=== PATIENT | female | born 1980 | race African-American/Black ===

== ENCOUNTER 2018-11-06 10:17 | Emergency (ER) | payer MEDICAID ==
[~2018-11-06] VITALS: Ht 157.5 cm; Wt 58.0 kg
[2018-11-06] MEDS ORDERED: SODIUM CHLORIDE 0.9% 1,000 ML IV ONE (11:00)
[2018-11-06] MEDS ORDERED: ONDANSETRON 4MG ODT PO ONE (11:00)
[2018-11-06 11:44] LABS: CHLORIDE 100 mEq/L (98-107)
[2018-11-06 12:15] LABS: UCG SCREEN NEGATIVE
[2018-11-06 14:09] VITALS: BP 146/96
== END 2018-11-06 14:12 | disposition home or self-care (01) ==
LOC: ER 10:17
DX: J40 Bronchitis, not specified as acute or chronic (principal); F17.210 Nicotine dependence, cigarettes, uncomplicated; R00.0 Tachycardia, unspecified; R06.82 Tachypnea, not elsewhere classified; Z88.0 Allergy status to penicillin
CPT/HCPCS: 36415; 71046; 80048; 81025; 84484; 85379; 96360; 96361; 99284; 99406; J7030; Z7610; Q0162

== ENCOUNTER 2021-06-24 18:30 | Emergency (ER) | payer MEDICAID ==
[~2021-06-24] VITALS: Ht 157.5 cm; Wt 60.0 kg
[2021-06-24 18:34] VITALS: BP 190/98
== END 2021-06-24 20:38 | disposition home or self-care (01) ==
LOC: ER 18:30
DX: G56.02 Carpal tunnel syndrome, left upper limb (principal); R03.0 Elevated blood-pressure reading, without diagnosis of hypertension
CPT/HCPCS: 99281

== ENCOUNTER 2022-10-18 14:33 | Emergency (ER) | payer BC, MEDICAID ==
[~2022-10-18] VITALS: Ht 157.5 cm; Wt 59.0 kg
[2022-10-18 15:44] LABS: BASOPHILS % 0.5 % (0.0-2.0); EOSINOPHILS % 0.4 % (0.0-5.0); HEMATOCRIT. 36.6 % (36.0-48.0); HEMOGLOBIN. 12.7 g/dL (12.0-16.0); LYMPHOCYTES % 23.6 % (20.0-50.0); MEAN CORPUSCULAR HEMOGLOBIN 34.2 pg (28.0-32.0); MEAN CORPUSCULAR VOLUME 98.6 fL (81.0-99.0); MONOCYTES % 12.6 % (2.0-8.0); NEUTROPHILS % 62.9 % (40.0-76.0); PLATELET 142 x1000/uL (130-400); RED BLOOD CELL COUNT 3.71 mill/uL (4.2-5.4); RED CELL DISTRIBUTION WIDTH 18.3 % (11.6-14.6)
[2022-10-18 15:53] LABS: CHLORIDE 86 mEq/L (98-107)
[2022-10-18] MEDS ORDERED: ONDANSETRON HCL 4MG/2ML INJ IV ONE (16:00)
[2022-10-18] MEDS ORDERED: SODIUM CHLORIDE 0.9% 1,000 ML IV ONE (16:00)
[2022-10-18 16:09] LABS: ETHANOL BLOOD 171 mg/dL
[2022-10-18 16:13] LABS: HCG SCREEN NEGATIVE
[2022-10-18 17:22] LABS: *AMPHETAMINES SCREEN URINE NEGATIVE (NEGATIVE); *BARBITURATES SCREEN URINE NEGATIVE (NEGATIVE); *BENZODIAZEPINES SCREEN URINE NEGATIVE (NEGATIVE); *COCAINE SCREEN URINE NEGATIVE (NEGATIVE); METHADONE URINE SCREEN NEGATIVE (NEGATIVE); OPIATES URINE SCREEN NEGATIVE (NEGATIVE); PHENCYCLIDINE URINE SCREEN NEGATIVE (NEGATIVE)
[2022-10-18 17:24] LABS: CANNABINOID URINE SCREEN PRESUMTIVE POSITIVE (NEGATIVE)
[2022-10-18] MEDS ORDERED: KCL 20MEQ/100ML PREMIX 100 ML IV ONE (19:15)
[2022-10-18] MEDS ORDERED: POTASSIUM CHLORIDE 20MEQ TABLET SR PO ONE (19:15)
[2022-10-18 19:49] LABS: CLARITY URINE CLOUDY (CLEAR); COLOR URINE DARK YELLOW (YELLOW); KETONES URINE 2+ (NEGATIVE); LEUKOCYTE ESTERASE URINE 1+ (NEGATIVE); NITRITE URINE POSITIVE (NEGATIVE); OCCULT BLOOD URINE 3+ (NEGATIVE); PH URINE 6.5 (4.5-8.0); PROTEIN URINE 3+ (NEGATIVE); SPECIFIC GRAVITY URINE 1.023 (1.005-1.030); UROBILINOGEN URINE >8.0 E.U./dL (0.2-1.0)
[2022-10-18 22:30] VITALS: BP 121/74
== END 2022-10-18 23:36 | disposition short-term general hospital (02) ==
LOC: ER 14:33 → CANBEDREQ 23:51
DX: F10.129 Alcohol abuse with intoxication, unspecified (principal); E87.6 Hypokalemia; R11.2 Nausea with vomiting, unspecified; Z88.0 Allergy status to penicillin; Z79.899 Other long term (current) drug therapy; Y90.6 Blood alcohol level of 120-199 mg/100 ml
CPT/HCPCS: 36415; 71045; 80053; 80305; 80320; 81003; 81025; 83735; 83880; 84703; 85025; 93005; 96361; 96365; 96366; 96375; 99285; J2405; J3480; J7030; G0480

== ENCOUNTER 2022-11-10 14:22 | Emergency (ER) | payer BC ==
[~2022-11-10] VITALS: Ht 170.2 cm; Wt 68.0 kg
[2022-11-10] MEDS ORDERED: SODIUM CHLORIDE 0.9% 1,000 ML IV ONE (14:45)
[2022-11-10 15:24] LABS: BASOPHILS % 1.1 % (0.0-2.0); EOSINOPHILS % 0.2 % (0.0-5.0); HEMATOCRIT. 41.5 % (36.0-48.0); HEMOGLOBIN. 14.1 g/dL (12.0-16.0); MEAN CORPUSCULAR HEMOGLOBIN 33.9 pg (28.0-32.0); MEAN CORPUSCULAR VOLUME 99.6 fL (81.0-99.0); MEAN PLATELET VOLUME 7.9 fl (7.4-10.4); MONOCYTES % 7.3 % (2.0-8.0); NEUTROPHILS % 59.4 % (40.0-76.0); PLATELET 418 x1000/uL (130-400); RED BLOOD CELL COUNT 4.17 mill/uL (4.2-5.4); RED CELL DISTRIBUTION WIDTH 18.7 % (11.6-14.6)
[2022-11-10 15:35] LABS: CHLORIDE 101 mEq/L (98-107)
[2022-11-10 15:46] LABS: ETHANOL BLOOD 363 mg/dL (-10)
[2022-11-10 16:49] VITALS: BP 124/75
== END 2022-11-10 16:54 | disposition home or self-care (01) ==
LOC: ER 14:22
DX: R00.2 Palpitations (principal); Z88.0 Allergy status to penicillin
CPT/HCPCS: 36415; 71045; 80053; 80320; 84484; 85025; 93005; 96360; 99285; J7030; G0480

== ENCOUNTER 2023-01-01 13:45 | Emergency (ER) | payer BC ==
[~2023-01-01] VITALS: Ht 167.6 cm; Wt 68.0 kg
[2023-01-01] MEDS ORDERED: IBUPROFEN 600MG TABLET PO STA (14:01)
[2023-01-01] MEDS ORDERED: ONDANSETRON 4MG ODT PO STA (14:01)
[2023-01-01 14:02] VITALS: O2SAT 100
[2023-01-01 14:38] LABS: BASOPHILS % 0.7 % (0.0-2.0); HEMATOCRIT. 40.9 % (36.0-48.0); LYMPHOCYTES % 9.6 % (20.0-50.0); MEAN CORPUSCULAR HEMOGLOBIN 33.3 pg (28.0-32.0); MEAN CORPUSCULAR VOLUME 97.5 fL (81.0-99.0); MEAN PLATELET VOLUME 7.6 fl (7.4-10.4); MONOCYTES % 7.8 % (2.0-8.0); NEUTROPHILS % 81.9 % (40.0-76.0); PLATELET 493 x1000/uL (130-400); RED BLOOD CELL COUNT 4.19 mill/uL (4.2-5.4); RED CELL DISTRIBUTION WIDTH 19.1 % (11.6-14.6)
[2023-01-01 14:43] LABS: HCG SCREEN NEGATIVE
[2023-01-01 14:44] LABS: CHLORIDE 101 mEq/L (98-107)
[2023-01-01] MEDS ORDERED: SODIUM CHLORIDE 0.9% 1,000 ML IV ONE (15:30)
[2023-01-01] MEDS ORDERED: ONDA4TAB11 PO (16:59)
[2023-01-01 18:16] LABS: HEPATITIS B SURFACE ANTIGEN NEGATIVE
[2023-01-01 22:37] LABS: CLARITY URINE CLOUDY (CLEAR); COLOR URINE YELLOW (YELLOW); KETONES URINE 3+ (NEGATIVE); LEUKOCYTE ESTERASE URINE NEGATIVE (NEGATIVE); NITRITE URINE POSITIVE (NEGATIVE); OCCULT BLOOD URINE NEGATIVE (NEGATIVE); PH URINE 5.5 (4.5-8.0); PROTEIN URINE 2+ (NEGATIVE); SPECIFIC GRAVITY URINE 1.024 (1.005-1.030)
[2023-01-01 23:35] VITALS: BP 110/75; PULSE 85; RESP 16; TEMP 98
== END 2023-01-01 23:36 | disposition home or self-care (01) ==
LOC: ER 13:45
DX: R74.01 Elevation of levels of liver transaminase levels (principal); R05.9 Cough, unspecified; R09.81 Nasal congestion; Z88.0 Allergy status to penicillin
CPT/HCPCS: 99284; 96360; 96361; 71045; 80053; 81003; 84703; 83690; 85025; 87340; 86803; 36415; 86705; 86709; Q0162; J7030

== ENCOUNTER 2023-02-14 04:05 | Emergency (ER) | payer BC ==
[~2023-02-14] VITALS: Ht 162.6 cm; Wt 59.0 kg
[~2023-02-14 04:05] MED LIST: ONDA4TAB11 PO
[2023-02-14 04:06] VITALS: BP 136/70; PULSE 100; RESP 18; TEMP 97.9; O2SAT 98
[2023-02-14 05:21] LABS: BASOPHILS % 0.3 % (0.0-2.0); EOSINOPHILS % 0.5 % (0.0-5.0); HEMATOCRIT. 32.9 % (36.0-48.0); HEMOGLOBIN. 11.2 g/dL (12.0-16.0); LYMPHOCYTES % 13.1 % (20.0-50.0); MEAN CORPUSCULAR HEMOGLOBIN 33.3 pg (28.0-32.0); MEAN CORPUSCULAR HGB CONC 33.9 g/dL (31.0-37.0); MEAN CORPUSCULAR VOLUME 98.1 fL (81.0-99.0); MEAN PLATELET VOLUME 8.3 fl (7.4-10.4); NEUTROPHILS % 79.1 % (40.0-76.0); PLATELET 129 x1000/uL (130-400); RED BLOOD CELL COUNT 3.36 mill/uL (4.2-5.4); RED CELL DISTRIBUTION WIDTH 18.8 % (11.6-14.6); WHITE BLOOD COUNT 8.4 x1000/uL (4.5-11.0)
[2023-02-14 05:30] LABS: PROTHROMBIN TIME 10.4 sec (9.6-11.0)
[2023-02-14 05:31] LABS: HCG SCREEN NEGATIVE
[2023-02-14 05:34] LABS: CHLORIDE 101 mEq/L (98-107); INDEX HEMOLYSI 1 (1-3); INDEX ICTERIC 1 (1-4); INDEX LIPEMIC 1 (1-3); POTASSIUM 3.2 mEq/L (3.5-5.1); SODIUM 137 mEq/L (136-145)
[2023-02-14] MEDS ORDERED: KETOROLAC 30MG/ML VIAL IV STA (05:41)
[2023-02-14] MEDS ORDERED: ONDANSETRON HCL 4MG/2ML INJ IV STA (05:41)
[2023-02-14 05:42] LABS: ALANINE AMINOTRANSFERASE 72 IU/L (13-61); ALBUMIN 3.3 g/dL (3.4-5.0); ASPARTATE AMINOTRANSFERASE 104 IU/L (15-37); BILIRUBIN TOTAL 0.6 mg/dL (0.1-1.0); CALCIUM 8.8 mg/dL (8.5-10.1); CARBON DIOXIDE 26 mEq/L (21-32); CREATININE 0.4 mg/dL (0.6-1.3); ETHANOL BLOOD 105 mg/dL (-10); GLUCOSE 99 mg/dL (70-105); PROTEIN TOTAL 7.4 g/dL (6.0-8.3); UREA NITROGEN BLOOD 6 mg/dL (7-21)
[2023-02-14] MEDS ORDERED: LORAZEPAM 2MG/ML CPJ IV ONE (05:45)
[2023-02-14 06:18] LABS: CLARITY URINE CLOUDY (CLEAR); COLOR URINE DARK YELLOW (YELLOW); GLUCOSE URINE NEGATIVE (NEGATIVE); KETONES URINE 1+ (NEGATIVE); LEUKOCYTE ESTERASE URINE NEGATIVE (NEGATIVE); NITRITE URINE POSITIVE (NEGATIVE); OCCULT BLOOD URINE 3+ (NEGATIVE); PH URINE 5.5 (4.5-8.0); PROTEIN URINE 2+ (NEGATIVE); SPECIFIC GRAVITY URINE 1.022 (1.005-1.030)
[2023-02-14 06:21] LABS: BACTERIA URINE 2+; YEAST URINE NONE SEEN
[2023-02-14 06:39] LABS: *AMPHETAMINES SCREEN URINE NEGATIVE (NEGATIVE); *BARBITURATES SCREEN URINE NEGATIVE (NEGATIVE); *BENZODIAZEPINES SCREEN URINE NEGATIVE (NEGATIVE); *COCAINE SCREEN URINE NEGATIVE (NEGATIVE); ECSTASY MDMA SCREEN URINE NEGATIVE (NEGATIVE); METHADONE URINE SCREEN NEGATIVE (NEGATIVE); OPIATES URINE SCREEN NEGATIVE (NEGATIVE); PHENCYCLIDINE URINE SCREEN NEGATIVE (NEGATIVE)
[2023-02-14 06:52] LABS: CANNABINOID URINE SCREEN PRESUMTIVE POSITIVE (NEGATIVE)
[2023-02-14 07:05] LABS: SQUAMOUS EPITHELIAL CELL URINE FEW /lpf (RARE/1+)
[2023-02-14] MEDS ORDERED: LEVOFLOXACIN 750MG PREMIX 150 ML IV ONE (07:30)
[2023-02-14] MEDS ORDERED: NITR100C PO (12:56)
== END 2023-02-14 13:12 | disposition home or self-care (01) ==
LOC: ER 04:05 → EDBEDREQ 08:25 → EDBEDREQTM 08:25 → CANBEDREQ 13:01 → ER 13:12
DX: F10.239 Alcohol dependence with withdrawal, unspecified (principal); N39.0 Urinary tract infection, site not specified; J44.9 Chronic obstructive pulmonary disease, unspecified; Y90.0 Blood alcohol level of less than 20 mg/100 ml; Y90.5 Blood alcohol level of 100-119 mg/100 ml
CPT/HCPCS: 80053; 80305; 81003; 80320; 84703; 83690; 85025; 85610; 36415; 74176; 93005; 96365; 96375; 99285; J1885; J2060; J2405; J1956; Z7610 ×2; G0480

== ENCOUNTER 2024-03-09 22:46 | Emergency (ER) | payer BC ==
[~2024-03-09] VITALS: Ht 167.6 cm; Wt 76.0 kg
[~2024-03-09 22:46] MED LIST changes: +NITR100C PO; +ONDA-239 PO; -ONDA4TAB11 PO
[2024-03-09 22:49] VITALS: BP 137/82; PULSE 98; RESP 18; TEMP 98.6; O2SAT 99
== END 2024-03-10 01:35 | disposition left against medical advice (07) ==
LOC: ER 22:46
DX: R11.2 Nausea with vomiting, unspecified (principal); Z53.21 Procedure and treatment not carried out due to patient leaving prior to being seen by health care provider

== ENCOUNTER 2024-04-10 10:34 | Emergency (ER) | payer BC, MEDICAID ==
[~2024-04-10] VITALS: Ht 165.1 cm; Wt 70.0 kg
[2024-04-10 10:36] VITALS: O2SAT 98
[2024-04-10 11:34] LABS: BASOPHILS % 0.6 % (0.0-2.0); DIFFERENTIAL COMMENT 0; EOSINOPHILS % 0.1 % (0.0-5.0); HEMATOCRIT. 38.5 % (36.0-48.0); HEMOGLOBIN. 12.7 g/dL (12.0-16.0); MEAN CORPUSCULAR HEMOGLOBIN 33.4 pg (28.0-32.0); MEAN CORPUSCULAR HGB CONC 32.9 g/dL (31.0-37.0); MEAN CORPUSCULAR VOLUME 101.3 fL (81.0-99.0); MEAN PLATELET VOLUME 8.9 fl (7.4-10.4); MONOCYTES % 7.6 % (2.0-8.0); NEUTROPHILS % 77.7 % (40.0-76.0); PLATELET 167 x1000/uL (130-400); RED CELL DISTRIBUTION WIDTH 20.4 % (11.6-14.6); WHITE BLOOD COUNT 8.8 x1000/uL (4.5-11.0)
[2024-04-10 11:37] LABS: CHLORIDE 98 mEq/L (98-107); POTASSIUM 3.3 mEq/L (3.5-5.1); SODIUM 135 mEq/L (136-145)
[2024-04-10 11:38] LABS: CALCIUM 9.8 mg/dL (8.7-10.4); CARBON DIOXIDE 27 mEq/L (21-32)
[2024-04-10 11:43] LABS: CREATININE 0.6 mg/dL (0.6-1.0); GLUCOSE 146 mg/dL (70-105); UREA NITROGEN BLOOD 5 mg/dL (9-23)
[2024-04-10] MEDS: IOHEXOL-350 100 ML BOTTLE ONE (12:03)
[2024-04-10 12:18] LABS: ETHANOL BLOOD < 10 mg/dL (<10); TROPONIN I HIGH SENSITIVITY < 4 ng/L (3.0-34)
[2024-04-10 12:22] VITALS: TEMP 36.94740
[2024-04-10] MEDS: SODIUM CHLORIDE 0.9% 1,000 ML IV ONE (12:33)
[2024-04-10] MEDS: METOCLOPRAMIDE HCL 10MG/2ML VIAL IV ONE (12:33)
[2024-04-10] MEDS: DEXAMETHASONE 4MG/ML 1ML VIAL IV STA (12:33)
[2024-04-10] MEDS: KETOROLAC 30MG/ML VIAL IV STA (13:24)
[2024-04-10] MEDS: ASPIRIN 325MG EC TABLET PO ONE (14:19)
[2024-04-10 14:55] VITALS: BP 125/91; PULSE 81; RESP 19; O2SAT 100
== END 2024-04-10 15:22 | disposition short-term general hospital (02) ==
LOC: ER 10:34 → EDBEDREQTM 12:27 → EDBEDREQ 12:27 → CANBEDREQ 13:54 → ER 15:22
DX: G43.909 Migraine, unspecified, not intractable, without status migrainosus (principal); J44.9 Chronic obstructive pulmonary disease, unspecified; I10 Essential (primary) hypertension; Z88.0 Allergy status to penicillin
CPT/HCPCS: 80048; 80320; 85025; 84484; 36415; 71045; 70496; 70498; 70450; 93005; 96361; 96374; 96375; 99285; Q9967; J1100; J1885; J2765; J7030; Z7610; A4606; G0480

== ENCOUNTER 2024-07-05 17:08 | Emergency (ER) | payer BC, MEDICAID ==
[~2024-07-05] VITALS: Ht 165.1 cm; Wt 68.0 kg
[2024-07-05 17:18] VITALS: BP 133/92; PULSE 105; RESP 18; TEMP 37.2; O2SAT 100
== END 2024-07-05 18:35 ==
LOC: ER 17:08
DX: R42 Dizziness and giddiness (principal); J44.9 Chronic obstructive pulmonary disease, unspecified; Z88.0 Allergy status to penicillin
CPT/HCPCS: 71045; 93005; 99283

== ENCOUNTER 2025-03-13 11:30 | Inpatient (IN) | payer BC, MEDICAID ==
[~2025-03-13] VITALS: Ht 167.6 cm; Wt 63.2 kg
[~2025-03-13 11:30] MED LIST changes: -NITR100C PO; +VANJ5 PO
[2025-03-13 11:31] VITALS: O2SAT 98
[2025-03-13] MEDS: MORPHINE SULFATE 4 MG/ML INJ (FOR IV/IM USE) IV ONE (12:04)
[2025-03-13 12:28] LABS: BASOPHILS % 0.7 % (0.0-2.0); EOSINOPHILS % 0.3 % (0.0-5.0); HEMATOCRIT. 40.6 % (36.0-48.0); HEMOGLOBIN. 13.3 g/dL (12.0-16.0); LYMPHOCYTES % 28.4 % (20.0-50.0); MEAN PLATELET VOLUME 8.4 fl (7.4-10.4); MONOCYTES % 6.4 % (2.0-8.0); NEUTROPHILS % 64.2 % (40.0-76.0); PLATELET 280 x1000/uL (130-400); RED BLOOD CELL COUNT 3.95 mill/uL (4.2-5.4); RED CELL DISTRIBUTION WIDTH 18.3 % (11.6-14.6)
[2025-03-13 12:49] LABS: CREATININE 0.8 mg/dL (0.6-1.0)
[2025-03-13 12:50] LABS: UREA NITROGEN BLOOD 6 mg/dL (9-23)
[2025-03-13 12:51] LABS: ASPARTATE AMINOTRANSFERASE 47 IU/L (<34)
[2025-03-13 12:52] LABS: BILIRUBIN DIRECT 0.3 mg/dL (<=3.0); BILIRUBIN TOTAL 0.9 mg/dL (0.1-1.0); PROTEIN TOTAL 8.7 g/dL (6.0-8.3)
[2025-03-13 12:54] LABS: CLARITY URINE TURBID (CLEAR); COLOR URINE DARK YELLOW (YELLOW); GLUCOSE URINE NEGATIVE (NEGATIVE); KETONES URINE 1+ (NEGATIVE); LEUKOCYTE ESTERASE URINE 2+ (NEGATIVE); NITRITE URINE POSITIVE (NEGATIVE); OCCULT BLOOD URINE 3+ (NEGATIVE); PH URINE 6.5 (4.5-8.0); PROTEIN URINE 4+ (NEGATIVE); SPECIFIC GRAVITY URINE 1.023 (1.005-1.030); UROBILINOGEN URINE 1.0 E.U./dL (0.2-1.0)
[2025-03-13 13:05] LABS: HCG SCREEN NEGATIVE
[2025-03-13] MEDS ORDERED: VANCOMYCIN 1G PREMIX 200 ML IV ONE (13:15)
[2025-03-13 13:28] LABS: BACTERIA URINE 4+; SQUAMOUS EPITHELIAL CELL URINE NONE SEEN /lpf (RARE/1+)
[2025-03-13 13:29] LABS: WBC URINE TNTC /hpf (0-2)
[2025-03-13 13:31] LABS: YEAST URINE 3+
[2025-03-13] MEDS: SODIUM CHLORIDE 0.9% (SEPSIS BOLUS) IV ONE (13:42)
[2025-03-13] MEDS: PIPERACILLIN/TAZO 3.375G/50ML 50 ML IV ONE (13:43)
[2025-03-13] MEDS ORDERED: ZOLPIDEM TARTRATE 5MG TABLET PO PRN (14:00)
[2025-03-13] MEDS ORDERED: MAGNESIUM/ALUMINUM HYDROXIDE/SIMETHICONE 30ML UDC PO PRN (14:00)
[2025-03-13] MEDS ORDERED: ACETAMINOPHEN 325MG TABLET PO PRN (14:00)
[2025-03-13] MEDS ORDERED: NALOXONE HCL 0.4MG/ML VIAL IV PRN (14:15)
[2025-03-13] MEDS: VANCOMYCIN 1.25GM/250ML IV SCH (14:26)
[2025-03-13] MEDS: SODIUM CHLORIDE 0.9% 1,000 ML IV SCH (14:38)
[2025-03-13] MEDS: ONDANSETRON HCL 4MG/2ML INJ IV PRN (15:59)
[2025-03-13] MEDS: ENOXAPARIN 40MG/0.4ML SYR SUBCUT SCH (15:59)
[2025-03-13] MEDS: LACTOBACILLUS RHAMNOSUS GG CAP PO SCH (20:56)
[2025-03-13] MEDS ORDERED: VANCOMYCIN 500MG PREMIX 100 ML IV SCH (22:00)
[2025-03-13] MEDS: VANCOMYCIN 500 MG in DEXT 5% WATER 100 ML IV SCH (22:23)
[2025-03-13 22:28] VITALS: BP 150/84; PULSE 120; RESP 20; TEMP 36.4; TEMP 36.418; O2SAT 98
[2025-03-13] MEDS ORDERED: MORPHINE SULFATE 2 MG/ML INJ (NOT FOR IM USE) IV PRN (22:45)
[2025-03-13] MEDS: PIPERACILLIN/TAZO 3.375G/50ML 50 ML IV SCH (23:13)
[2025-03-13] MEDS: HYDROMORPHONE HCL/PF 1MG/ML INJ IV PRN (23:13)
[2025-03-14] MEDS: CLONIDINE 0.1MG TABLET PO PRN (01:06)
[2025-03-14 04:00] VITALS: BP 141/98; PULSE 115; RESP 20; TEMP 36.4; O2SAT 100
[2025-03-14 08:00] VITALS: BP 129/89; PULSE 101; RESP 18; TEMP 36.3; O2SAT 100
[2025-03-14 08:33] LABS: BASOPHILS % 0.4 % (0.0-2.0); EOSINOPHILS % 0.1 % (0.0-5.0); HEMATOCRIT. 39.8 % (36.0-48.0); HEMOGLOBIN. 13.6 g/dL (12.0-16.0); LYMPHOCYTES % 10.3 % (20.0-50.0); MEAN PLATELET VOLUME 8.7 fl (7.4-10.4); MONOCYTES % 5.9 % (2.0-8.0); NEUTROPHILS % 83.3 % (40.0-76.0); PLATELET 251 x1000/uL (130-400); RED BLOOD CELL COUNT 3.96 mill/uL (4.2-5.4); RED CELL DISTRIBUTION WIDTH 17.7 % (11.6-14.6)
[2025-03-14] MEDS: PANTOPRAZOLE SODIUM 40 MG/VIAL IV SCH (08:39)
[2025-03-14 08:49] LABS: UREA NITROGEN BLOOD 10.0 mg/dL (9-23)
[2025-03-14] MEDS: METOCLOPRAMIDE HCL 10MG/2ML VIAL IV SCH (08:51)
[2025-03-14 10:24] LABS: CREATININE 1.3 mg/dL (0.6-1.0)
[2025-03-14 12:42] LABS: *AMPHETAMINES SCREEN URINE NEGATIVE (NEGATIVE); *BARBITURATES SCREEN URINE NEGATIVE (NEGATIVE); *BENZODIAZEPINES SCREEN URINE NEGATIVE (NEGATIVE); *COCAINE SCREEN URINE NEGATIVE (NEGATIVE); METHADONE URINE SCREEN NEGATIVE (NEGATIVE); OPIATES URINE SCREEN NEGATIVE (NEGATIVE); PHENCYCLIDINE URINE SCREEN NEGATIVE (NEGATIVE)
[2025-03-14 12:43] LABS: CANNABINOID URINE SCREEN PRESUMPTIVE POSITIVE (NEGATIVE); ECSTASY MDMA SCREEN URINE NEGATIVE (NEGATIVE)
[2025-03-14 12:51] VITALS: BP 135/88; PULSE 108; RESP 18; TEMP 36.3; O2SAT 98
[2025-03-14 16:00] VITALS: BP 126/80; PULSE 104; RESP 19; TEMP 36.3; O2SAT 100
[2025-03-14 20:00] VITALS: BP 123/81; PULSE 106; RESP 18; TEMP 36.4; O2SAT 100
[2025-03-14] MEDS: VANCOMYCIN 500 MG in DEXT 5% WATER 100 ML IV SCH (21:54)
[2025-03-15] VITALS: BP 119/89; PULSE 101; RESP 17; TEMP 36.4; O2SAT 99
[2025-03-15 04:00] VITALS: BP 124/81; PULSE 106; RESP 17; TEMP 36.5; O2SAT 99
[2025-03-15 07:30] LABS: BASOPHILS % 0.2 % (0.0-2.0); EOSINOPHILS % 0.4 % (0.0-5.0); HEMATOCRIT. 33.4 % (36.0-48.0); HEMOGLOBIN. 11.5 g/dL (12.0-16.0); LYMPHOCYTES % 19.2 % (20.0-50.0); MEAN PLATELET VOLUME 9.3 fl (7.4-10.4); MONOCYTES % 4.5 % (2.0-8.0); NEUTROPHILS % 75.7 % (40.0-76.0); PLATELET 204 x1000/uL (130-400); RED BLOOD CELL COUNT 3.30 mill/uL (4.2-5.4); RED CELL DISTRIBUTION WIDTH 17.0 % (11.6-14.6)
[2025-03-15 07:39] LABS: CREATININE 1.3 mg/dL (0.6-1.0); UREA NITROGEN BLOOD 8.0 mg/dL (9-23)
[2025-03-15 08:00] VITALS: BP 120/80; PULSE 102; RESP 20; TEMP 36.4; O2SAT 99
[2025-03-15] MEDS: HYDROCODONE/ACETAMINOPHEN 5/325MG TABLET PO PRN (08:20)
[2025-03-15] MEDS: THIAMINE HCL 100MG TABLET PO SCH (08:20)
[2025-03-15] MEDS ORDERED: POTASSIUM CHLORIDE 40 MEQ in DEXT 5% WATER 230 ML IV ONE (09:00)
[2025-03-15] MEDS: POTASSIUM CHLORIDE 20MEQ TABLET SR PO NR (09:20)
[2025-03-15] MEDS: KCL 20MEQ/100ML X 2 FOR TOTAL KCL 40MEQ/200ML IV SCH (09:20)
[2025-03-15 11:16] VITALS: BP 128/82; PULSE 108; RESP 20; TEMP 36.7; O2SAT 99
[2025-03-15] MEDS: POTASSIUM CHLORIDE 20MEQ TABLET SR PO SCH ×2 (14:13→17:05)
[2025-03-15 16:00] VITALS: BP 118/85; PULSE 110; RESP 20; TEMP 36.8; O2SAT 99
[2025-03-15 20:00] VITALS: BP 103/75; PULSE 104; RESP 18; TEMP 36.5; O2SAT 99
[2025-03-16] VITALS: BP 118/75; PULSE 101; RESP 17; TEMP 36.4; O2SAT 99
[2025-03-16 04:00] VITALS: BP 135/75; PULSE 104; RESP 18; TEMP 36.5; O2SAT 99
[2025-03-16 08:00] VITALS: BP 117/81; PULSE 104; RESP 18; TEMP 36.1; O2SAT 99
[2025-03-16] MEDS: VANCOMYCIN 750MG PREMIX 150 ML IV SCH (10:25)
[2025-03-16 12:00] VITALS: BP 112/77; PULSE 87; RESP 18; TEMP 36.6; O2SAT 99
[2025-03-16 16:00] VITALS: BP 115/85; PULSE 101; RESP 18; TEMP 36.5; O2SAT 99
[2025-03-16 20:00] VITALS: BP 123/90; PULSE 100; RESP 18; TEMP 36.6; O2SAT 100
[2025-03-16] MEDS: MEROPENEM 1G/100ML 100 ML IV SCH (22:50)
[2025-03-17] VITALS: BP 133/82; PULSE 100; RESP 18; TEMP 36.7; O2SAT 100
[2025-03-17 04:00] VITALS: BP 131/87; PULSE 99; RESP 18; TEMP 36.7; O2SAT 100
[2025-03-17 08:00] VITALS: BP_SYST 137; BP_DIAS 81; BP_DIAS 85; PULSE 96; RESP 17; TEMP 36.5; O2SAT 96
[2025-03-17] MEDS ORDERED: THIA100T72 PO (10:53)
[2025-03-17] MEDS ORDERED: NITR100C MT (10:53)
[2025-03-17 12:00] VITALS: BP 137/85; PULSE 87; RESP 17; TEMP 36.6; O2SAT 100
[2025-03-17 16:00] VITALS: BP 138/84; PULSE 81; RESP 18; TEMP 36.6; O2SAT 99
[2025-03-17 17:40] LABS: CREATININE 1.1 mg/dL (0.6-1.0); UREA NITROGEN BLOOD < 5 mg/dL (9-23)
[2025-03-17 17:52] VITALS: BP 138/84; PULSE 81; RESP 18; TEMP 97.9
== END 2025-03-17 19:00 | disposition home health service (06) | DRG 720 ==
LOC: ER 11:38 → EDBEDREQTM 14:01 → EDBEDREQ 14:01 → EDBEDREQSVC 15:38 → ENRESERV 18:14 → 6WST 19:34
PROVIDERS: ADMIT Internal Medicine; ATTEND Internal Medicine
DX: A41.51 Sepsis due to Escherichia coli [E. coli] (principal); E87.20 Acidosis, unspecified; N12 Tubulo-interstitial nephritis, not specified as acute or chronic; J44.9 Chronic obstructive pulmonary disease, unspecified; I10 Essential (primary) hypertension; E87.6 Hypokalemia; R94.31 Abnormal electrocardiogram [ECG] [EKG]; K29.20 Alcoholic gastritis without bleeding; N13.30 Unspecified hydronephrosis; F10.90 Alcohol use, unspecified, uncomplicated; F17.200 Nicotine dependence, unspecified, uncomplicated; Z88.0 Allergy status to penicillin; Z79.899 Other long term (current) drug therapy
CPT/HCPCS: 36415; 74176; 80048; 80076; 80202; 80305; 81003; 82962; 83605; 84145; 84443; 84703; 85025; 87077; 87186; 93970; 96365; 96367; 96375; 99285; G0378; J1171; J1650; J2185; J2270; J2405; J2470; J2543; J2765; J3373; J3480; J7030; J7060